=== PATIENT | male | born 1945 | race Caucasian/White ===

== ENCOUNTER 2016-12-23 13:20 | Outpatient (RCR) ==
--- NOTE | 2017-01-05 11:45 | RS.OPPTEV2 ---
Date of Note: 12/23/16 Visit #: 1 Date of Evaluation: 12/23/16 Payer Source: MEDICARE Surgery Performed?: No Treatment Diagnosis: Imbalance, Dizziness, History of CVA History of Condition/Mechanism of Injury:: Patient reports having trouble with feeling off balance and dizzy. States this has been a problem for approximately a year. States he has had double vision for a long time, possibly since his most recent CVA in 2014. Dizziness and feeling off balance has become a daily problem. Prior Level of Function.....Patient was independent with: ADL's, Self Care, Caregiving, Ambulation/Mobility, Community Integration/Access Level of Function: Independent in commmunity. Functional Limitations: ADL's, Reaching, Sitting, Standing, Bending, Squatting, Ambulation, Community Access/Integration Current Subjective/complaints:: Patient reports being off balance or dizzy when he first sits up out of bed. States it happens every morning. States turning over in bed sometimes makes him dizzy. States his blood pressure has been fluctuating throughout the day. States when he walks, he has to hang on to something so not to lose his balance. He gets double vision frequently. States he can shake his head and double vision resolves. He denies hearing loss , ringing in the ears, or the feeling of fullness in the ears. States he has continued to drive without the onset of dizziness. States he has medication for dizziness and has taken the medication today. Reports occasions of passing out. He had an occasion at the end of 2014 when he passed out and hit the back of his head. States he has had 3 strokes, all affecting the right side. Medical History Medical History: Hypertension, CVA/TIA (08/18/13, then 2 TIA's ..the most recent 12/30/14), Diabetes, Arthritis Smoking Status: Former smoker Hx Home Medications: meclizine, cymbalata,prednisone States he is on approximately 20 medications per day. Patient's Goals: His goal is to get relief of dizziness and imbalance. Functional Outcome Measure - G Codes & Severity Modifier G Codes & Modifier: Body position current, goal , and D/C CL Source of G Code score: Presentation in department Gait - Gait Pattern Gait Comments: Patient ambulates without an assistive device, demonstrating an unsteady gait. He demonstrates deviation from a straight path. He reaches out to hold on to the wall when walking to evaluation room. Presents decreased right hip and knee flexion and decreased DF on the right LE. General Range of Motion: Cervical ROM is WFL's. Symptoms reproduced with cervical extension and left rotation. Muscle Strength: Cervical spine strength 5/5 in all directions. Special Tests: Smooth pursuit testing in H pattern reproduces double vision. Patient able to shake his head and make double vision resolve. Convergence also brings on double vision. [place] and Roll test reproduce symptoms severely to each direction. Patient had to be helped up into sitting between each test, became extremely red in the face, and almost fell off the treatment table. Balance - Comments Balance Assessment Comments: Balance is good when not having a dizzy episode. Static sitting is good, Dynamic sitting good. Static standing Fair without dizziness or double vision, Dynamic standing balance is Fair -. Additional Comments: Additional Comments: Blood pressure in sitting midway through the evaluation 140 /78. Interventions - Exercise/Activities/Manual Therapy Exercises/Activities: NA Manual Therapy: NA - Charges Total Direct Minutes: 55 mins Total Treatment Time: 55 mins Procedures billed for this date of service:: EVal Medium Assessment Assessment: Mr. Rivas presents to therapy with a diagnosis of dizziness and imbalance.Patient presents with multiple complicating factors of history of CVA , fluctuating blood pressure, chronic diplopia. It was very difficult to determine source of dizziness, as his symptoms were very easily reproduced with most activities. 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 Recommend further assessment due to multiple issues complicating the ability to discern the cause of his symptoms and the ability to set up a plan for treatment. Plan - Treatment to be Provided Procedures: Patient Education Modalities: No Modalities - Treatment Plan Frequency: one time Duration: One time treatment ORDER # VISITS AND/OR THROUGH DATE: 12/23/16 - Treatment Code (1) Dizziness Comments: R42
== END 2016-12-29 ==
PROVIDERS: ATTEND Psychiatry & Neurology Neurology
DX: R26.89 Other abnormalities of gait and mobility (principal); R42 Dizziness and giddiness; I10 Essential (primary) hypertension; E66.09 Other obesity due to excess calories; E13.8 Other specified diabetes mellitus with unspecified complications; Z86.73 Personal history of transient ischemic attack (TIA), and cerebral infarction without residual deficits

== ENCOUNTER 2018-11-27 10:00 | Outpatient (RCR) ==
--- NOTE | 2018-11-23 10:12 | RS.OPPTEV2 ---
Date of Note: 11/22/18 Visit #: 1 Number of visits approved by Insurance: NA Date of Evaluation: 11/22/18 Payer Source: MEDICARE Surgery Performed?: No Treatment Diagnosis: Impaired balance, gait abnormality, Vertigo History of Condition/Mechanism of Injury:: Patient reports having trouble with feeling off balance for a while. He has also had episodes of dizziness for the last several years. He has also had double vision for many years. States he had recent occurrence of severe dizziness and imbalance last week while he was out of town on a fishing trip with friends. He was treated with antibiotics and medication for congestion and now the dizziness is much better. Prior Level of Function.....Patient was independent with: ADL's, Self Care, Caregiving, Ambulation/Mobility, Community Integration/Access Functional Limitations: Self Care, ADL's, Reaching, Sitting, Standing, Bending, Squatting, Ambulation, Community Access/Integration Current Subjective/complaints:: Mr. Rivas reports progressive difficulty with his balance in standing and when walking. States he had therapy for his balance several years ago, and it helped a great deal. States he still has dizziness consistently with changing positions, such as supine to sit and sit to stand. States he has to wait and let the dizziness get better before moving around. He was assessed last week for BPPV and the therapist said the otoliths were not out of place. States he has been using a straight cane since last week for his balance. He reports that his legs always feel like jello. Up until last week, he was going to the local gym a few times a week. States he has to hold on to the bathroom sink to brush his teeth or shave. He also cannot instructional technologist rastafari and raise both arms, he has to hold onto the pew in front of him to raise one arm. Medical History Medical History: Hypertension, CVA/TIA (2013, then 2 TIA's ..the most recent December 2014), Diabetes, Arthritis Medical History Comments:: Hx of boughts of Vertigo Smoking Status: Former smoker Hx Home Medications: Augmentin, citalopram,Eliquis, ezetimibe,famotidine,Flector , Flomax, gabapentin, losartan, meclizine, [place] Patient's Goals: His goal is to gain strength in his legs and improve his balance. Functional Outcome Measure Tinetti: 15 (15=46.5% impairment) - G Codes & Severity Modifier G Codes & Modifier: NA Source of G Code score: NA Observation - Observation Posture: Forward Head, Rounded Shoulders, Decreased Lumbar Lordosis Gait - Gait Pattern Gait Comments: Mr. Rivas ambulates with a st. cane in the department. He demonstrates impaired coordination of fine motor movement in the LE's with ambulation. He demonstrates moderate deviation from a straight path, short stride and decreased base of support. He exhibits decreased bilateral hip and knee flexion, and demonstrates minimal foot clearance during swing phase. He demonstrates no loss of balance, but is gait is unsteady. He is able to ambulate without an assistive device, but demonstrates greater instability without the cane. Without his cane, he appears to pronate the ankle at late swing phase bilaterally. General Range of Motion: ROM of bilateral LE's and trunk is WFL's. Muscle Strength: Right hip flexion 4+/5, hip abduction, IR, and ER 4-/5. Extension 4/5. Right knee 4/5 quads and HS. Right ankle 4 to 4+/5. Left LE 5/5 throughout. Lateral trunk strength 4+/5, Ant/Post trunk strength 4/5. Rotational lower trunk strength 4-/5. Sensation - Sensation Right Lower Extremity: Intact/Normal Left Lower Extremity: Intact/Normal Comments: Proprioception intact bilateral LE's. Balance - Sitting Balance Static Sitting Balance: Good Dynamic Sitting Balance: Good - Standing Balance Static Standing Balance: Fair (-) Dynamic Standing Balance: Fair (-) - Comments Balance Assessment Comments: Patient unable to maintain SLS on right leg without support, left leg SLS without support for ~2 seconds. Coordination - Tests Bilateral Heel to Rodriguez: Mild Deviation Toe Tapping: Normal/Intact Additional Comments: Additional Comments: Resting BP in sitting is 146/83. Upon immediate standing, BP 136/71. States these meaurements are slightly high for what he usually runs. In supine BP 149/80. Upon immediate sitting 160/90, 2 mins later 169/92. Interventions - Exercise/Activities/Manual Therapy Exercises/Activities: None today Manual Therapy: NA HOME EXERCISE PROGRAM: none - Charges Timed Code Treatment Minutes: 0 Total Treatment Time: 65 mins Procedures billed for this date of service:: EVAL Medium EVALUATION COMPLEXITY LEVEL EVALUATION COMPLEXITY LEVEL: HISTORY: High (Hx CVA, HTN, Hx Vertigo and double vision, Pacemaker, OA, Diabetes), EXAM OF BODY SYSTEMS: High (MS, ROM, gait, balance, coordination, sensation, Vitals), CLINICAL PRESENTATION: Medium ( changing characteristics), CLINICAL DECISION MAKING: Medium Assessment Assessment: Mr. Rivas presents to therapy with a diagnosis of BPPV and abnormal gait and mobility. He has had a history of double vision and boughts of Vertigo. He is consistently dizzy for a short time with change of position and shows no significant decrease in blood pressure with positions changes. He demonstrates weakness in the right hip and trunk. His standing balance is impaired to the point of requiring him to hold onto something to maintain his balance while performing standing ADL's. He presents to be at a high risk for falls per Tinetti Assessment. Demonstrates gait characteristics of cerebellar ataxia. He presents good potential to benefit from strengthening in his legs and trunk, as well as balance activities to improve both static and dynamic standing balance, to improve his ability with standing ADL's and decreased his risk for falls. Patient Education: Education of diagnosis, Home Safety, Activity Modification, Education of Plan of Care Rehab Potential: Good Short Term Goals Goal #1: Right hip strength abduction 4+/5 Goal to be met by: 12/14/18 Goal #2: Right quad strength 4+/5 Goal to be met by: 12/07/18 Goal #3: Pt will maintain standing balance w/o support with distractions or UE movt. Goal to be met by: 12/14/18 Goal #4: Pt will amb. with st. cane and with good foot clearance bilaterally. Goal to be met by: 12/14/18 [facility] Goals Goal #1: Patient knows HEP and to continue ex's to maintain functional level at D/c. Goal to be met by: 01/07/19 Goal #2: Score on Tinetti Assessment improved to 24/28, showing lower risk for falls Goal to be met by: 01/07/19 Goal #3: Pt able to perform standing ADL's with minimal difficulty. Goal to be met by: 01/07/19 Goal #4: Pt to report improved confidence with standing and walking balance. Goal to be met by: 01/07/19 Plan - Treatment to be Provided Procedures: Therapeutic Exercises, Therapeutic Activity, Gait Training, Neuromuscular Rehab, Vestibular Rehab, Patient Education Modalities: No Modalities - Treatment Plan Frequency: 2-3 X week Duration: 6 weeks Dates of Marketing Summer Intern Goals: 01/07/19 Expiration date of current Insurance Approval:: NA - Treatment Code (1) Gait abnormality Code(s): R26.9 - UNSPECIFIED ABNORMALITIES OF GAIT AND MOBILITY Comments: R26.9 (2) Muscle weakness Code(s): M62.81 - MUSCLE WEAKNESS (GENERALIZED) Comments: M62.81 (3) At risk for falls Code(s): Z91.81 - HISTORY OF FALLING Comments: Z91.81 (4) History of CVA (cerebrovascular accident) Code(s): Z86.73 - PRSNL HX OF TIA (TIA), AND CEREB INFRC W/O RESID DEFICITS Comments: Z86.73 (5) Double vision Code(s): H53.2 - DIPLOPIA Comments: H53.2
--- NOTE | 2018-11-24 11:36 | RS.OPPTDN ---
Subjective Date of Note: 11/23/18 Visit #: 2 Number of visits approved by Insurance: Na Date of Evaluation: 11/22/18 Payer Source: MEDICARE Treatment Diagnosis: Impaired balance, gait abnormality, Vertigo Current Subjective/complaints:: Mr. Rivas states he wants to walk like a regular man. States he doesn't want to use the cane today. States he is no longer driving because he feels like his reaction time is impaired. Interventions - Exercise/Activities/Manual Therapy Exercises/Activities: Patient performed exercises in hooklying of resisted hip abduction with green band, 2 sets of 10, SLR with light assistance 2 sets of 10. Performed isometric trunk rotation 2 sets of 10 reps. Received stretching to bilateral HS and into lower trunk rotation. HS are very tight: SLR in supine ~30 degrees bilaterally. Performed exercises for trunk balance in sitting: bilateral shoulder flexion with ball overhead to challenge balance X 8 times, forward reach with ball, and then diagonal reaching to each side just beyond knees X8 reps. In standing, with CGA, patient performs bilateral shoulder flexion with ball to just beyond shoulder height X 8 reps to challenge standing balance. Performs standing weight shifting to kick the wall with each foot. Patient needs assistance to maintain balance on the right LE. Performed active stepping out to lateral and anterior targets on the floor. Again, he needs assistance to maintain balance on the right LE. Performed backward walking ~6 feet, with min assist and slower gait to avoid loss of balance. Performed side stepping each direction X 2 with CGA. Total minutes of Exercise: 43 mins Manual Therapy: NA HOME EXERCISE PROGRAM: none - Charges Timed Code Treatment Minutes: 43 mins Total Treatment Time: 49 mins Procedures billed for this date of service:: Ex, Neuro 2 Assessment: Mr. Rivas is very receptive to anything that will help his balance. He is much more unstable on the right LE than the left. He is also very tight in his trunk and HS, which is likely affecting his mobility with walking. He demonstrates potential to gain increased safety with stretching, LE and trunk strengthening and balance activities to reduce his risk for falls. Patient Education: Education of diagnosis, Body/Joint mechanics, Home Safety, Education of Plan of Care Short Term Goals Goal #1: Right hip strength abduction 4+/5 Goal to be met by: 12/14/18 Goal #2: Right quad strength 4+/5 Goal to be met by: 12/07/18 Goal #3: Pt will maintain standing balance w/o support with distractions or UE movt. Goal to be met by: 12/14/18 Goal #4: Pt will amb. with st. cane and with good foot clearance bilaterally. Goal to be met by: 12/14/18 [facility] Goals Goal #1: Patient knows HEP and to continue ex's to maintain functional level at D/c. Goal to be met by: 01/07/19 Goal #2: Score on Tinetti Assessment improved to 24/28, showing lower risk for falls Goal to be met by: 01/07/19 Goal #3: Pt able to perform standing ADL's with minimal difficulty. Goal to be met by: 01/07/19 Goal #4: Pt to report improved confidence with standing and walking balance. Goal to be met by: 01/07/19 Plan Dates of Prison Goals: 01/07/19 Expiration date of current Insurance Approval:: NA PLAN: Progress balance activities as tolerated.
--- NOTE | 2018-11-27 16:10 | RS.OPPTDN ---
Subjective Date of Note: 11/27/18 Visit #: 3 Number of visits approved by Insurance: 2-3x 6 Date of Evaluation: 11/22/18 Payer Source: MEDICARE Treatment Diagnosis: Impaired balance, gait abnormality, Vertigo Current Subjective/complaints:: Patient says he doesn't feel much different from his last session. States he continues to feel "off balanced." Reports that this feeling is mostly with rising from laying down. States it takes hime about 20 sec's to steady himself and takes only a few sec's when standing. He reports he did drive himself to therapy today and did not have any difficulty. C/o stepping onto a high curb is difficult for him. Interventions - Exercise/Activities/Manual Therapy Exercises/Activities: Patient begins with bilateral HS stretching x 4. Lower trunk rotation glides, ball squeezes, hooklying trunk rotation with ball with green tband, green tband resisted single leg diagonal crunch, bridging, SLR, all 2x10 reps. Hooklying: L LE stationary and R hip abd slowly add and abd for strength and control 2x5. Sitting EOB: Scapular retraction with 1# wand and green tband 2x10, throwing and catching small ball challenging trunk lean and shifting weight x 10. Rhythmic stabilization for lateral leaning x 5 ea. Green tband for resisted Anterior/Posterior lean x 10 with hands crossed across the body. Patient stands for 30 sec's with feet 6 in apart, then 12 in to concentrate on postural control with slight ant/post sway, but after ~10 sec's in. Patient then performed at 12 in apart with eyes closed demo sway ant/post as soon as eyes closed. When performing, TV is running low in the background for distraction. Using 12 in step stool, pt places SLS using R leg onto stool, then L leg for 30 sec's to maintain balance. Total minutes of Exercise: 38 Manual Therapy: NA HOME EXERCISE PROGRAM: none - Charges Timed Code Treatment Minutes: 38 Total Treatment Time: 43 Procedures billed for this date of service:: neuro2, ex1 Assessment: Patient had driven to PT appt today without any claimed c/o's. He amb SBA to our dept with some unsteadiness denying the need of w/c or other assistance. Patient nearly scissors at some points, but does not have any LOB. Unsteadiness mostly occurs or felt with supine to sit lasting approximately 20 - 30 sec's. Initial standing is also slightly unsteady, but recovers more quickly than supine to sit, which is performed SBA. Patient has had some of his medications removed per MD, but pt feels it could be contributing to his symptoms. Unsteadiness occurs with more narrow EVER as indicated on line stripe in our dept, but more notably so with eyes closed. He is advancing with core exercises and demo the need to have assisted stretching to improve HS flexibility as well. Patient Education: Education of diagnosis, Home Exercise Program, Home Safety, Education of Plan of Care Short Term Goals Goal #1: Right hip strength abduction 4+/5 Goal to be met by: 12/14/18 Goal #2: Right quad strength 4+/5 Goal to be met by: 12/07/18 Goal #3: Pt will maintain standing balance w/o support with distractions or UE movt. Goal to be met by: 12/14/18 Goal #4: Pt will amb. with st. cane and with good foot clearance bilaterally. Goal to be met by: 12/14/18 Manager Floor Goals Goal #1: Patient knows HEP and to continue ex's to maintain functional level at D/c. Goal to be met by: 01/07/19 Goal #2: Score on Tinetti Assessment improved to 24/28, showing lower risk for falls Goal to be met by: 01/07/19 Goal #3: Pt able to perform standing ADL's with minimal difficulty. Goal to be met by: 01/07/19 Goal #4: Pt to report improved confidence with standing and walking balance. Goal to be met by: 01/07/19 Plan Dates of Halfway Goals: 01/07/19 Expiration date of current Insurance Approval:: 01/07/19 PLAN: Patient to continue 2-3 x for continued bal and core exercises to improve gait and strength.
== END 2018-11-28 23:59 ==
PROVIDERS: ATTEND Family Medicine
DX: H81.10 Benign paroxysmal vertigo, unspecified ear (principal); R26.9 Unspecified abnormalities of gait and mobility

== ENCOUNTER 2018-12-28 09:15 | Outpatient (RCR) ==
--- NOTE | 2018-11-30 15:16 | RS.OPPTDN ---
Subjective Date of Note: 11/30/18 Visit #: 4 Number of visits approved by Insurance: Reassess at 10 Date of Evaluation: 11/22/18 Payer Source: MEDICARE Treatment Diagnosis: Impaired balance, gait abnormality, Vertigo Current Subjective/complaints:: Patient says he can feel he "worked" at his previous session. He expresses he wants to get stronger and walk better. He admits his has hired someone to mow their yard due to Arnulfo's symptoms. He states it is hard for him sometimes to raise his R leg into the car and bean picker the L leg when walking. Interventions - Exercise/Activities/Manual Therapy Exercises/Activities: Patient begins with therex at EOB: 2# network systems integrator balls ea hand performing alternating diagonals and then cross body. Also, reaching up and then placing them down ~6 inches off of floor x 8 times to challenge trunk bal. 4# wand for bilateral shoulder flexion, scap retraction with green tband 2x10. Patient supine for bilateral HS stretching x 4. Lower trunk rotation glides, ball squeezes, hooklying trunk rotation with ball with green tband, green tband resisted single leg diagonal crunch, SAQ 3#, DF with green tband, bridging, SLR, all 2x10 reps. Hooklying: L LE stationary and R hip abd slowly add and abd for strength and control 2x5. 3# LE for alternate LE lift x 10. Sitting EOB: slow head turns horizontally eyes open x 5 not producing any dizziness. Vertical head turns eyes open x 2 CAUSING dizziness and posterior sway. Discontinued and instructed in looking up and then down x 5 (Instructed to perform at home in chair), Rhythmic stabilization for lateral leaning x 5 ea. Patient stands for 30 sec's with feet 6 in apart, then 12 in to concentrate on postural control with slight ant/post sway, but after ~10 sec's in. Patient then performed at 12 in apart with eyes closed demo sway ant/post as soon as eyes closed. When performing, TV is running low in the background for distraction. Sitting EOB: large physioball toss cycling between kicking using each foot alternately x 20 reps. Assisted patient to his vehicle as he was more dizzy today than last session. Total minutes of Exercise: 53 Manual Therapy: NA HOME EXERCISE PROGRAM: none - Charges Timed Code Treatment Minutes: 53 Total Treatment Time: 53 Procedures billed for this date of service:: ex, neuro3 Assessment: Patient amb no AD with decreased L LE flexion causing him to have difficulty lifting the L foot adequately. He is able to perform all therex with mild fatigue and given rests, however, vertical head motions reproduces dizziness and cause posterior sway. He is assisted out to his vehicle for added safety. He will continue to benefit from bal and LE/trunk therex to decrease risk of falls. Patient Education: Body/Joint mechanics, Home Exercise Program, Home Safety Patient demonstrates compliance with HEP?: Yes Short Term Goals Goal #1: Right hip strength abduction 4+/5 Goal to be met by: 12/14/18 Goal #2: Right quad strength 4+/5 Goal to be met by: 12/07/18 Goal #3: Pt will maintain standing balance w/o support with distractions or UE movt. Goal to be met by: 12/14/18 Goal #4: Pt will amb. with st. cane and with good foot clearance bilaterally. Goal to be met by: 12/14/18 [facility] Goals Goal #1: Patient knows HEP and to continue ex's to maintain functional level at D/c. Goal to be met by: 01/07/19 Goal #2: Score on Tinetti Assessment improved to 24/28, showing lower risk for falls Goal to be met by: 01/07/19 Goal #3: Pt able to perform standing ADL's with minimal difficulty. Goal to be met by: 01/07/19 Goal #4: Pt to report improved confidence with standing and walking balance. Goal to be met by: 01/07/19 Plan Dates of [facility] Goals: 01/07/19 Expiration date of current Insurance Approval:: 01/07/19 PLAN: Continue to work on trunk strengthening to provide improve bal
--- NOTE | 2018-12-04 16:27 | RS.OPPTDN ---
Subjective Date of Note: 12/04/18 Visit #: 5 Number of visits approved by Insurance: Reassess at 10 Date of Evaluation: 11/22/18 Payer Source: MEDICARE Treatment Diagnosis: Impaired balance, gait abnormality, Vertigo Current Subjective/complaints:: Patient says, "I'm doing alright. Just a little tired." States he has re-started Cymbalta and has been told he seems to be more "himself." Reports he continues to be dizzy, but stretches feel good to him and he believes his legs are getting more flexible. He is not agreeable to use his AD to therapy, but admits it is tough for him to walk on uneven surfaces. Interventions - Exercise/Activities/Manual Therapy Exercises/Activities: Patient begins with therex supine of passive HS stretching , piriformis, trunk rotation, x 4 bilaterally. Ball squeezes, bridging, lower trunk rotation with ball and green tband, bilateral LE raise in hooklying with green tband all 2x10. SAQ 2 1/2#, DF with green tband, Sitting EOB: Head turns L to R x 4 then assessing for dizziness. No difficulty bal noted. Lifting head up and down x 2# tool and die technician balls ea hand performing alternating diagonals and then cross body. Also, reaching up and then placing them down ~6 inches off of floor x 8 times to challenge trunk bal. 4# wand for bilateral shoulder flexion, scap retraction with green tband 2x10. Abominal crunch and posterior lean with chowdhury tband 2x10 reps. Holding 3# wand out front of him and alternately raising the LEs x 10. Assisted patient out of dept to car to assure safety with ambulation. Total minutes of Exercise: 40 Manual Therapy: NA HOME EXERCISE PROGRAM: none - Charges Timed Code Treatment Minutes: 40 Total Treatment Time: 40 Procedures billed for this date of service:: ex, neuro2 Assessment: Patient progressing with all therex maintaining bal with sitting therex, but does require some time to decrease dizziness. He continues to have decrease hip flexion to clear L foot, but with prompts he is able to improve. Patient Education: Education of diagnosis, Home Exercise Program, Home Safety Patient demonstrates compliance with HEP?: Yes Short Term Goals Goal #1: Right hip strength abduction 4+/5 Goal to be met by: 12/14/18 Progress towards Goal:: Progressing Goal #2: Right quad strength 4+/5 Goal to be met by: 12/07/18 Progress towards Goal:: Progressing Goal #3: Pt will maintain standing balance w/o support with distractions or UE movt. Goal to be met by: 12/14/18 Progress towards Goal:: Progressing Goal #4: Pt will amb. with st. cane and with good foot clearance bilaterally. Goal to be met by: 12/14/18 Comments:: Patient does not wish to use in dept or in community despite encouragement Cobbler Sole Goals Goal #1: Patient knows HEP and to continue ex's to maintain functional level at D/c. Goal to be met by: 01/07/19 Progress towards goal: Progressing Goal #2: Score on Tinetti Assessment improved to 24/28, showing lower risk for falls Goal to be met by: 01/07/19 Goal #3: Pt able to perform standing ADL's with minimal difficulty. Goal to be met by: 01/07/19 Goal #4: Pt to report improved confidence with standing and walking balance. Goal to be met by: 01/07/19 Plan Dates of Intermediate Goals: 01/07/19 Expiration date of current Insurance Approval:: 01/07/19 PLAN: Patient to continue to receive therex to improve flexibility and strength. Also, bal activities to improve gait.
--- NOTE | 2018-12-11 13:50 | RS.OPPTDN ---
Subjective Date of Note: 12/11/18 Visit #: 7 Number of visits approved by Insurance: Reassess at 10th Date of Evaluation: 11/22/18 Payer Source: MEDICARE Treatment Diagnosis: Impaired balance, gait abnormality, Vertigo Current Subjective/complaints:: Patient says he is doing better. Reports he is having a good day today and yesterday. Says he is walking better and faster. States he did have one episode in which he was asleep and dizziness awakened him. Reports the "room was spinning like it was when I was in [place]." States this time, however, it did not last near as long and was not as intense. Arnulfo states he is going to the gym when he leaves therapy today. Interventions - Exercise/Activities/Manual Therapy Exercises/Activities: Patient begins sitting EOB for: 5# wand bilateral shoulder raise, blue tband 3# bar for scap retraction, rhythmic stabilization for lateral lean and isometric sit to stand x 5 ea. Berger tband for anterior/ posterior sway x 10 ea. He is supine for passive HS, SKTC, stretching, piriformis, trunk rotation, x 4 bilaterally. Ball squeezes, bridging, lower trunk rotation with ball and progressed to blue tband, bilateral LE raise in hooklying progressing to blue tband all 2x10. Hooklying R hip abd then slowly returning midline 2x5 reps, then isometric R hip adduction x 5. Isometric hip flexion x 5. SAQ 3#, DF with green tband, SLR and SLR ABD 2x5. Standing: Throwing and kicking (alternately) large physioball x 20 reps. Head turns with eyes open and closed x 5. Patient ends with stationary bike x 5 mins with prompts for performing reverse/forward revolutions and assisting with getting on /off and pedalsPatient amb over Assisted patient out of dept to car to assure safety with ambulation. Total minutes of Exercise: 48 Manual Therapy: NA HOME EXERCISE PROGRAM: none - Charges Timed Code Treatment Minutes: 48 Total Treatment Time: 48 Procedures billed for this date of service:: ex, neuro2 Assessment: Patient appears to have improved steadiness with gait today, ambulating with faster speed and clearing the L LE better without cueing. He continues to be able to progress with all trunk exercises demo increased strength and tolerance. Isometric sit to stand reproduced dizziness after 2 reps, but quickly went away. Patient Education: Home Exercise Program, Home Safety, Education of Plan of Care Patient demonstrates compliance with HEP?: Yes Short Term Goals Goal #1: Right hip strength abduction 4+/5 Goal to be met by: 12/14/18 Progress towards Goal:: Progressing Goal #2: Right quad strength 4+/5 Goal to be met by: 12/07/18 Progress towards Goal:: Progressing Goal #3: Pt will maintain standing balance w/o support with distractions or UE movt. Goal to be met by: 12/14/18 Progress towards Goal:: Progressing Goal #4: Pt will amb. with st. cane and with good foot clearance bilaterally. Goal to be met by: 12/14/18 Comments:: Patient amb without AD here, but keeps cane in the truck [facility] Goals Goal #1: Patient knows HEP and to continue ex's to maintain functional level at D/c. Goal to be met by: 01/07/19 Progress towards goal: Progressing Goal #2: Score on Tinetti Assessment improved to 24/28, showing lower risk for falls Goal to be met by: 01/07/19 Goal #3: Pt able to perform standing ADL's with minimal difficulty. Goal to be met by: 01/07/19 Goal #4: Pt to report improved confidence with standing and walking balance. Goal to be met by: 01/07/19 Plan Dates of Solar Installation Crew Supervisor Goals: 01/07/19 Expiration date of current Insurance Approval:: 01/07/19 PLAN: Patient to continue BIW for progressive therex to strengthen trunk for bal and gait.
--- NOTE | 2018-12-12 16:44 | RS.OPPTDN ---
Subjective Date of Note: 12/07/18 Visit #: 6 Number of visits approved by Insurance: Reassess at 10th Date of Evaluation: 11/22/18 Payer Source: MEDICARE Treatment Diagnosis: Impaired balance, gait abnormality, Vertigo Current Subjective/complaints:: Patient says he seems to be less dizzy. States he is working on HEP and trying to be more aware of lifting the L LE while walking. He says his reminds him often. Interventions - Exercise/Activities/Manual Therapy Exercises/Activities: Patient begins stationary bike x 5 mins with prompts for performing reverse/forward revolutions and assisting with getting on/off and pedals. He is supine for passive HS, SKTC, stretching, piriformis, trunk rotation, x 4 bilaterally. Ball squeezes, bridging, lower trunk rotation with ball and green tband, bilateral LE raise in hooklying with green tband all 2x10. SAQ increased to 3#, DF with green tband, SLR and SLR ABD 2x5. Sitting EOB: 4# wand for bilateral shoulder flexion, scap retraction with green tband 2x10. Abominal crunch and posterior lean with chowdhury tband 2x10 reps. Holding 4 # wand out front of him and alternately raising the LEs x 10. Patient amb over Assisted patient out of dept to car to assure safety with ambulation. Total minutes of Exercise: 48 Manual Therapy: NA HOME EXERCISE PROGRAM: none - Charges Timed Code Treatment Minutes: 48 Total Treatment Time: 48 Procedures billed for this date of service:: neuro2, ex Assessment: Continued improvement with tolerance to increasing bal activities and dynamic therex as he is maintaining no LOB with todays exercises. He continues to have motivation to learn more difficult exercises and improve his overall strength as he also attends aerobic activities at local gym. More control seen with activities involving the R LE and demo increased L hip flexion with gait. Patient Education: Home Exercise Program, Home Safety Patient demonstrates compliance with HEP?: Yes Short Term Goals Goal #1: Right hip strength abduction 4+/5 Goal to be met by: 12/14/18 Progress towards Goal:: Progressing Goal #2: Right quad strength 4+/5 Goal to be met by: 12/07/18 Progress towards Goal:: Progressing Goal #3: Pt will maintain standing balance w/o support with distractions or UE movt. Goal to be met by: 12/14/18 Progress towards Goal:: Progressing Goal #4: Pt will amb. with st. cane and with good foot clearance bilaterally. Goal to be met by: 12/14/18 Gas Specialist Goals Goal #1: Patient knows HEP and to continue ex's to maintain functional level at D/c. Goal to be met by: 01/07/19 Progress towards goal: Progressing Goal #2: Score on Tinetti Assessment improved to 24/28, showing lower risk for falls Goal to be met by: 01/07/19 Goal #3: Pt able to perform standing ADL's with minimal difficulty. Goal to be met by: 01/07/19 Goal #4: Pt to report improved confidence with standing and walking balance. Goal to be met by: 01/07/19 Plan Dates of Gas Specialist Goals: 01/07/19 Expiration date of current Insurance Approval:: 01/07/19 PLAN: Patient to continue BIW
--- NOTE | 2018-12-14 13:39 | RS.OPPTDN ---
Subjective Date of Note: 12/14/18 Visit #: 8 Number of visits approved by Insurance: NA Date of Evaluation: 11/22/18 Payer Source: MEDICARE Treatment Diagnosis: Impaired balance, gait abnormality, Vertigo Current Subjective/complaints:: Mr. Rivas reports he is doing a little better. States he had another episode of severe dizziness, the other night. States it happened in the middle of the night and it was not as bad as the one that happened in [place]. Balance System Training - Level 1 Postural Stability/Symmetry #1 Training Mode: Postural Stability Training Vision: Eyes Open Task: None Stance: Normal Reps: 3 - Level 2 Dynamic Weight Shifting #1 Training Mode: Weight Shift Skill Level (1-3): 1 Platform Stability Level (1-12): static Reps: side to side, diagonal pattern Interventions - Exercise/Activities/Manual Therapy Exercises/Activities: Mr. Rivas receives stretching in supine for passive HS, SKTC, stretching, piriformis, trunk rotation, x 4 bilaterally. Performs isometric trunk rotation. Sitting EOB: 4# wand for bilateral shoulder flexion, scap retraction with green tband 2x10. Performed resisted trunk extension against black theraband from neutral sitting posture on EOB. He demonstrates difficulty keeping his feet on the floor. Performs anterior reaching while seated, and also performs diagonal patterns with bilateral UE's holding ball in seated position. In standing, patient takes challenges of lateral forces with ease. Anterior and posterior forces to standing balance is much more challenging for Mr. Rivas as he needs assistance to maintain his balance. Performed weight shifting activities in standing, to kick targets on the wall. Performs side stepping, tandum walking, backward walking, and alternating step ups with CGA X 1. Total minutes of Exercise: X 48 mins Manual Therapy: NA HOME EXERCISE PROGRAM: none - Objective Findings Observations,measurements,etc.: Mr. Rivas consistently shows dizziness with immediate supine to sit position change. He presents without an assistive device. Demonstrates ataxia in the LE's with gait. - Charges Timed Code Treatment Minutes: 48 mins Total Treatment Time: 52 mins Procedures billed for this date of service:: Ex, Neuro Assessment: Mr. Rivas is very pleasant and tolerates all activities well. He shows more difficulty with balance reactions when given anterior and posterior balance displacement challenges. He demonstrates potential to benefit from continued strengthening and balance exercises to reduce his risk for falls. Patient Education: Education of diagnosis, Home Exercise Program, Home Safety, Activity Modification, Education of Plan of Care Short Term Goals Goal #1: Right hip strength abduction 4+/5 Goal to be met by: 12/14/18 Progress towards Goal:: Progressing Goal #2: Right quad strength 4+/5 Goal to be met by: 12/07/18 Progress towards Goal:: Progressing Goal #3: Pt will maintain standing balance w/o support with distractions or UE movt. Goal to be met by: 12/14/18 Progress towards Goal:: Progressing Goal #4: Pt will amb. with st. cane and with good foot clearance bilaterally. Goal to be met by: 12/14/18 [facility] Goals Goal #1: Patient knows HEP and to continue ex's to maintain functional level at D/c. Goal to be met by: 01/07/19 Progress towards goal: Progressing Goal #2: Score on Tinetti Assessment improved to 24/28, showing lower risk for falls Goal to be met by: 01/07/19 Goal #3: Pt able to perform standing ADL's with minimal difficulty. Goal to be met by: 01/07/19 Goal #4: Pt to report improved confidence with standing and walking balance. Goal to be met by: 01/07/19 Plan Dates of [facility] Goals: 01/07/19 Expiration date of current Insurance Approval:: NA PLAN: Progress strengthening and balance activities/exercises.
--- NOTE | 2018-12-26 16:35 | RS.OPPTDN ---
Subjective Date of Note: 12/26/18 Visit #: 10 Number of visits approved by Insurance: 12 Date of Evaluation: 11/22/18 Payer Source: MEDICARE Treatment Diagnosis: Impaired balance, gait abnormality, Vertigo Current Subjective/complaints:: Patient c/o back pain today. Says he will be having an MRI tomorrow to see what is going on. Reports he hasn't gone to the gym for several days because of his back. States he is planning to mow today for the first time. Interventions - Exercise/Activities/Manual Therapy Exercises/Activities: Mr. Rivas sits for 3# wand for bilateral shoulder flexion , blue tband for scap retraction and then bilateral horizontal abd at EOB 2x15. Modified treatment today due to elevated back pain. He receives stretching in supine for passive HS, SKTC, stretching, piriformis, trunk rotation, x 4 bilaterally. Performs isometric trunk rotation. SAQ 3#, DF blue tband, ball squeezes, bridging, QS 2x10 reps. Ended with stationary bike with assistance on /off, chair position, and cues to switch positions for reverse/forward x 6 mins. Total minutes of Exercise: 38 Manual Therapy: NA HOME EXERCISE PROGRAM: none - Charges Timed Code Treatment Minutes: 38 Total Treatment Time: 38 Procedures billed for this date of service:: ex3 Assessment: Patient with elevated back pain limiting him in doing many of his normal balance exercises. Mr. Rivas is using his cane consistently now for safety and appears to be more steady clearing the LLE better. We modified treatment today as a result and was able to perform all without c/o's. Will reassess next session to measure improvement in gait/bal in hopes back pain will be reduced. Patient Education: Body/Joint mechanics, Home Safety Patient demonstrates compliance with HEP?: Yes Short Term Goals Goal #1: Right hip strength abduction 4+/5 Goal to be met by: 12/14/18 Progress towards Goal:: Progressing Goal #2: Right quad strength 4+/5 Goal to be met by: 12/07/18 Progress towards Goal:: Progressing Goal #3: Pt will maintain standing balance w/o support with distractions or UE movt. Goal to be met by: 12/14/18 Progress towards Goal:: Progressing Goal #4: Pt will amb. with st. cane and with good foot clearance bilaterally. Goal to be met by: 12/14/18 Progress towards Goal:: Progressing Custodial Goals Goal #1: Patient knows HEP and to continue ex's to maintain functional level at D/c. Goal to be met by: 01/07/19 Progress towards goal: Progressing Goal #2: Score on Tinetti Assessment improved to 24/28, showing lower risk for falls Goal to be met by: 01/07/19 Goal #3: Pt able to perform standing ADL's with minimal difficulty. Goal to be met by: 01/07/19 Goal #4: Pt to report improved confidence with standing and walking balance. Goal to be met by: 01/07/19 Plan Dates of Plastic Surgery Assistant Goals: 01/07/19 Expiration date of current Insurance Approval:: 01/07/19 PLAN: Continue x 2 more sessions. Reassess next visit.
--- NOTE | 2018-12-28 11:58 | RS.OPPTDN ---
Subjective Date of Note: 12/28/18 Visit #: 11 Number of visits approved by Insurance: 12-18 Date of Evaluation: 11/22/18 Payer Source: MEDICARE Treatment Diagnosis: Impaired balance, gait abnormality, Vertigo Current Subjective/complaints:: Patient continues to c/o back pain. 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 He has to get an xray first to find out correct location before getting an MRI. States he had an episode early this morning in which he was "shaking all over." States it awakened him and he had to sit on the side of his bed for ~10 mins to make it stop. Reports this is not unusual, but hasn't happened for "a while." Interventions - Exercise/Activities/Manual Therapy Exercises/Activities: Mr. Rivas sits for 5# wand for bilateral shoulder flexion 2x10, progressed to chowdhury tband for scap retraction and then bilateral horizontal abd with blue tband at EOB 2x15. Worked on raising small ball with 6 # diagonals (trunk to overhead) x 5 each. Then, holding ball without weight down near the floor to straight up to trunk level x 5. Holding ball alternating from stool on floor L to chest to stool on the R challenging him with bending over and sitting back up x 5, then performed with eyes closed same activity x 2 caused dizziness. Stopped and had patient perform again x 2. He receives stretching in supine of passive HS, SKTC, piriformis,figure 4, trunk rotation, x 4 bilaterally. Performs trunk rotation in hooklying with ball using chowdhury tband x 15. SAQ 3# alternately 2x20, DF chowdhury tband 2x20, ball squeezes, bridging, 2/20reps. Standing on floor tape: tandem walking x 10' x2 using SC for bal and CGA/ min A. On second set, patient intermittently placed SC on floor. Side stepping x 2 and backwards ambulation same distance x 2. The latter 2 activities was performed without the use of SC, but CGA. He uses floor tape to demo wide EVER for diagonal weight shifting and switching to where he is leading with the L then R. Alternate step ups onto target onto step stool no longer needing to hold onto the railing x 10 reps. Total minutes of Exercise: 54 Manual Therapy: NA HOME EXERCISE PROGRAM: none - Charges Timed Code Treatment Minutes: 54 Total Treatment Time: 61 Procedures billed for this date of service:: ex2, neuro2 Assessment: Patient continues to experience back pain, but does not want to modify treatment. He demo improved flexibility for the L LE now able to cross his legs while sitting and able to milagros improved range with all stretching to this side especially HS and piriformis. While he is able to maintain bal and voice no dizziness with sitting and leaning down L to R to place item on stool, these symptoms are present when he closes his eyes. He requires AD during tandem ambulation, but no AD needed with all other gait activities. He is demo improved bal with alternate step ups on stool compared to previous sessions. Standing weight shift diagonals caused some unsteadiness both directions, but recovers with SCARF GLUER assistance. Patient Education: Home Exercise Program, Home Safety, Education of Plan of Care Patient demonstrates compliance with HEP?: Yes Short Term Goals Goal #1: Right hip strength abduction 4+/5 Goal to be met by: 12/14/18 Progress towards Goal:: Met Goal #2: Right quad strength 4+/5 Goal to be met by: 12/07/18 Progress towards Goal:: Met Goal #3: Pt will maintain standing balance w/o support with distractions or UE movt. Goal to be met by: 12/14/18 Progress towards Goal:: Met Goal #4: Pt will amb. with st. cane and with good foot clearance bilaterally. Goal to be met by: 12/14/18 Progress towards Goal:: Progressing Comments:: continues to improve with each session Furs Salesperson Goals Goal #1: Patient knows HEP and to continue ex's to maintain functional level at D/c. Goal to be met by: 01/07/19 Progress towards goal: Progressing Goal #2: Score on Tinetti Assessment improved to 24/28, showing lower risk for falls Goal to be met by: 01/07/19 Progress towards goal: Progressing Comments: Goal #3: Pt able to perform standing ADL's with minimal difficulty. Goal to be met by: 01/07/19 Progress towards goal: Progressing Goal #4: Pt to report improved confidence with standing and walking balance. Goal to be met by: 01/07/19 Progress towards goal: Progressing (now using SC per his decision to assist with safety and prevent falls. Does not always rely on it however) Plan Dates of Furs Salesperson Goals: 01/07/19 Expiration date of current Insurance Approval:: 01/07/19 PLAN: Patient may continue BIW until 01/07/19 to progress bal and gait activities
--- NOTE | 2019-01-01 13:16 | RS.PTSUM ---
Progress Note/Summary Date of Note: 12/26/18 Date of Evaluation: 11/22/18 Number of Visits: 10 Reporting Period for this Progress Note: 11/22/18 through 12/26/18 Current Complaints/Gains: Mr. Rivas states he still gets dizzy when raising up out of bed, but not as intense as it had been. He reports feeling that his legs are stronger and his balance is improving. Reports being able to perform more activities with better balance. He is using a cane per our request for safety. He expresses interest in continuing therapy for a few more weeks to gain more improvement. Objective Measurements/Presentation: Tinetti Score improved to . Demonstrates improved initial standing balance with sit to stand transfers. Demonstrates overall improvement in general standing balance. He can now raise both arms over his head while maintaining standing balance. He is able to tolerate dynamic standing activities with less loss of balance. He continues to ambulate with an ataxic gait, but balance reactions have improved. G Codes: NA Source of G Code Score: NA - Short Term Goals Goal #1: Right hip strength abduction 4+/5 Goal to be met by: 12/14/18 Progress towards Goal:: Met Goal #2: Right quad strength 4+/5 Goal to be met by: 12/07/18 Progress towards Goal:: Met Goal #3: Pt will maintain standing balance w/o support with distractions or UE movt. Goal to be met by: 12/14/18 Progress towards Goal:: Met Goal #4: Pt will amb. with st. cane and with good foot clearance bilaterally. Goal to be met by: 01/15/19 Progress towards Goal:: Progressing - Chief Development Officer Goals Goal #1: Patient knows HEP and to continue ex's to maintain functional level at D/c. Goal to be met by: 01/22/19 Progress towards goal: Progressing Goal #2: Score on Tinetti Assessment improved to , showing lower risk for falls Goal to be met by: 01/22/19 Progress towards goal: Progressing Goal #3: Pt able to perform standing ADL's with minimal difficulty. Goal to be met by: 01/22/19 Progress towards goal: Progressing Goal #4: Pt to report improved confidence with standing and walking balance. Goal to be met by: 01/22/19 Progress towards goal: Progressing (now using SC per his decision to assist with safety and prevent falls. Does not always rely on it however) - Assessment Assessment of Improvement/Progress: Mr. Rivas has made good progress with increased strength and balance with therapy. He reports improved confidence with his balance. He improved with Tinetti Assessment, but still shows potential to gain increased safety with continued skilled therapy. - Plan Plan: Will request continuation of therapy sessions. Frequency: 2 X week Duration: 3 weeks Dates of Prison Goals: 01/22/19 Expiration date of current Insurance Approval:: NA
== END 2018-12-29 23:59 ==
PROVIDERS: ATTEND Family Medicine
DX: H81.10 Benign paroxysmal vertigo, unspecified ear (principal); R26.9 Unspecified abnormalities of gait and mobility